=== PATIENT | male | born 1965 | race Caucasian/White ===

== ENCOUNTER 2017-04-23 11:21 | Day surgery (SDC) | payer MEDICAID ==
[~2017-04-23] VITALS: Ht 185.4 cm; Wt 145.2 kg
[~2017-04-23 11:21] MED LIST: ATORVASTATIN CA20 M1 PO; FENOFIBRATE145 MG PO; GABAPENTIN800 MG PO; HYDROCHLOROTHIA25 M1 PO; LOSARTAN POTAS100 MG PO; MELOXICAM15 MG PO; PREDNISONE 5MG.5 MG PO; ROBAXIN500 M1 PO
--- NOTE | 2017-04-23 14:27 | Operative Note ---
Endoscopy Report Date: 04/23/17 Preoperative diagnosis: Rectal bleeding, history of polyps Procedure Type of procedure: Colonoscopy with polypectomy by snare Indications: Patient is a 52-year-old white male referred from Dr. Oglesby for colonoscopy. He has had some rectal bleeding which he states are hemorrhoids. He states that he's had a long-standing history of hemorrhoid problems since he was 19 years old. He did have hemorrhoid surgery apparently in [place] when he was age 36. He's had numerous colonoscopies in the past at outside facilities including [place] and [place]. Since states that "I'm supposed to take one every 2 years". He has apparently had polyps in the past but these have been benign. Nonetheless, he has been told he supposed have a colonoscopy every year or 2. He has no family history of colon cancer. He is being scheduled for possible knee surgery and states that he needs to have his colonoscopy before that. Consent was obtained and patient was taken to same-day surgery endoscopy procedure room. He was positioned in a lateral decubitus position. Intravenous sedation was achieved. He required significant amount of propofol titrated by anesthesia. Digital examination was performed which revealed minor hemorrhoids. Variable stiffness Olympus colonoscope was inserted via the anus. Some minor difficulty was advanced to the cecum. The cecal valve and appendiceal orifice were clearly identified. Colonic preparation was fair but adequate visualization was achieved with irrigation and suctioning performed throughout. I'll transverse colon there was a small polyp removed with cold biopsy forceps. In the distal transverse colon there was a moderate-sized pedunculated polyp removed with hot snare. There is an adjacent diminutive polyp removed with hot snare. It was unclear if this smaller polyp was retrieved however. Colonoscope was withdrawn through the LEFT colon. Within the rectum retroflexion was performed. It appears that he did not have prolapsing hemorrhoids but minor irritation of the anal vault. Colonoscope was withdrawn. Findings 1. Polyp 2. Internal Hemorrhoids Follow-Up Follow-Up: Likely tentatively would plan for follow-up colonoscopy in 3 years with anesthesia. Would not pursue surgery for the hemorrhoids. These may be amenable to treatment with topical steroid suppository. at [id number]
[2017-04-23 15:17] VITALS: BP 104/71
== END 2017-04-23 14:50 | disposition home or self-care (01) ==
LOC: SDC 11:21
PROVIDERS: Surgery
PROC: 0DBL8ZX Excision of Transverse Colon, Via Natural or Artificial Opening Endoscopic, Diagnostic (ICD-10-PCS; 2017-04-23)
PROC: 0DBL8ZX Excision of Transverse Colon, Via Natural or Artificial Opening Endoscopic, Diagnostic (ICD-10-PCS; principal; 2017-04-23 12:00)
DX: Z86.010 Personal history of colon polyps (principal); K62.5 Hemorrhage of anus and rectum; K64.9 Unspecified hemorrhoids; K63.5 Polyp of colon

== ENCOUNTER → 2017-06-12 | Outpatient (CLI) | payer MEDICAID ==
--- NOTE | 2017-06-13 17:49 | RADIOLOGY REPORT PS360 ---
MRI-LOW EXT ANY JOINT W/O-RT MRI of right knee. HISTORY: PAIN IN RIGHT KNEE right knee pain around the entire knee. Knee pain is constant. Knee instability. Patient Age: 52 years: Male Ordering Physician: ZAINAB KHAN MD TECHNIQUE: Multiplanar multisequence imaging on 1.5 Denise MRI. COMPARISON : Weightbearing Plain films right knee 04/24/2016. &, February 2017 FINDINGS Arthritic changes at the right knee are most evident at the medial compartment, but also seen involving lateral compartment, & minimal at the patellofemoral joint... Generous Tricompartmental marginal osteophytes. There are also marginal osteophytes about the condylar notch Patellofemoral joint.. Circumferential marginal osteophytes,... Diffuse chondral thinning most notable medial patellofemoral joint. A likely some mild osseous prominence most notable at the inferior its superior aspect patellofemoral joint. For example note some marginal osteophytes at superior margin Superiorly at femoral trochlear groove. Note relatively large volume patella . Medial compartment:. Most Pronounced degenerative arthritic changes seen here. Marked diffuse chondral loss/chondral thinning. Osteochondral irregularities both sides the joint most evident towards its medial aspect increased signal is seen subchondral regions both sides the joint particularly at the medial margin medial tibial plateau. .. Medial Medial meniscal tear most evident involving body of medial meniscus. Only small scant residual diminutive body of medial meniscus previous medial meniscal tear in this region. The prominent marginal osteophytes at medial joint again noted Lateral compartment.: Mild Chondral thinning with osseous irregularity & small osteochondral defect seen at lateral tibial, towards the tibial spine.. Also some minor area of osseous prominence both at the lateral femoral condyle & lateral tibial plateau towards notch. Lateral meniscus. : generous volume lateral meniscus, tending toward but but not frankly discoid.. Possibly some fraying at the free margin of posterior horn of question. ACL and PCL appear intact. Medial and lateral collateral ligaments intact. Patellar tendon and quadriceps tendon is seen to be intact. IMPRESSION:. Pronounced Osteoarthritic changes right knee which are most severe at the medial compartment. . Prominent diffuse chondral thinning at medial compartment. Marked joint space narrowing with degenerative reactive bone changes & osteochondral irregularities of both sides the joint bone medial compartment. Generous tricompartmental marginal osteophytes, also most prominent about medial compartment. Hypertrophic spurring about intercondylar notch also noted. Patellofemoral joint degenerative changes most evident midline, & towards medial facet . Medial meniscal tear & degeneration. Result in defect, & loss of body medial meniscus The cruciate and collateral ligaments intact.
== END ==
LOC: RAD 15:13
DX: M25.561 Pain in right knee (principal)